=== PATIENT | male | born 1970 | race American Indian/Alaskan Native ===

== ENCOUNTER 2017-02-28 09:39 | Emergency (ER) | payer OTHER ==
[2017-02-28 10:33] VITALS: BP 117/78
[2017-02-28] MEDS ORDERED: MOTRIN PO ONE (12:47)
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
== END 2017-02-28 14:20 | disposition left against medical advice (07) ==
LOC: ED 09:39
DX: S13.4XXA Sprain of ligaments of cervical spine, initial encounter (principal); V49.49XA Driver injured in collision with other motor vehicles in traffic accident, initial encounter; X58.XXXA Exposure to other specified factors, initial encounter; Y93.89 Activity, other specified; Y92.89 Other specified places as the place of occurrence of the external cause; Y99.8 Other external cause status; F17.200 Nicotine dependence, unspecified, uncomplicated
CPT/HCPCS: 72125